=== PATIENT | female | born 1995 | race Hispanic/Latino ===

== ENCOUNTER 2019-10-13 15:56 | Outpatient (CLI) | payer OTHER ==
--- NOTE | 2019-10-13 16:25 | RAD ---
3 views left ankle: 10/13/2019 COMPARISON: None HISTORY: Arthritis, pain FINDINGS: No fracture or dislocation. No radiopaque foreign body or subcutaneous gas. IMPRESSION: No acute findings.
== END 2019-10-13 15:57 | disposition home or self-care (01) ==
LOC: BICRAD 15:56
PROVIDERS: ATTEND Orthopaedic Surgery
DX: M19.90 Unspecified osteoarthritis, unspecified site (principal)